=== PATIENT | female | born 1965 | race Two or more races ===

== ENCOUNTER 2020-11-11 15:25 | Outpatient (CLI) | payer OTHER ==
[~2020-11-11 15:25] MED LIST: CLONAZEPAM0.5 MG; PAXIL20 MG
== END 2020-11-11 15:59 | disposition home or self-care (01) ==
LOC: OFIC 805 15:25
PROVIDERS: ATTEND Otolaryngology Otology & Neurotology
DX: H61.392 Other acquired stenosis of left external ear canal (principal); H61.23 Impacted cerumen, bilateral